=== PATIENT | female | born 1930 | race Caucasian/White ===

== ENCOUNTER 2016-07-04 19:49 | Emergency (ER) | payer OTHER ==
[2016-07-04 20:00] VITALS: BP 158/80; PULSE 89; TEMP 97.8; BMI 23.9
--- NOTE | 2016-07-04 20:05 | PDOC ---
History of Present Illness - General Chief Complaint: Bone Injury Stated Complaint: SLIP AND FALL RIGHT HAND Time Seen by Provider: 07/04/16 20:04 History Source: Patient Exam Limitations: No Limitations - History of Present Illness Initial Comments: 07/04/16 20:48 Patient was standing on couch trying to close the blinds when stumbled falling sideways landing on right wrist and striking head with glasses on. No drainage from nose or ears, no mental status changes, Denies LOC, fall was not witnessed but son whom she called states her behavior and her neuro status has not changed. Patient takes Plavix and is diabetic. Has significant pain and deformity to right wrist and some bruising to right brow and nasal bridge Occurred: reports: just prior to arrival Severity: reports: moderate, severe Pain Location: reports: face, head, upper extremity Method of Injury: Yes: fall Modifying Factors: improves with: None Loss of Consciousness: no loss of consciousness Associated Symptoms (Fall): denies symptoms Past History - Travel Traveled outside of the country in the last 30 days: No Close contact w/someone who was outside of country & ill: No - Past Medical History Allergies/Adverse Reactions: Allergies Allergy/AdvReac Type Severity Reaction Status Date / Time No Known Allergies Allergy Verified 07/04/16 19:52 Home Medications: Ambulatory Orders Glimepiride 4 mg PO BID 06/30/14 Metformin HCl [Glucophage -] 500 mg PO TID 06/30/14 Albuterol Sulfate Inhaler - [Ventolin HFA Inhaler -] 1 inh PO QID PRN 07/30/15 Aspirin Coated [Ecotrin -] 81 mg PO DAILY 07/30/15 Hydrochlorothiazide [Hctz -] 12.5 mg PO BID 07/30/15 Lisinopril 5 mg PO BID 07/30/15 Meloxicam [Mobic] 15 mg PO DAILY PRN 07/30/15 Piroxicam 20 mg PO DAILY 07/30/15 Simvastatin 10 mg PO HS 07/30/15 Acetaminophen [Tylenol .Regular Strength -] 650 mg PO Q6H PRN #0 tablet Albuterol 0.083% Nebulizer Nan [Ventolin 0.083% Nebulizer Soln -] 1 amp NEB Q4HPO amp 05/25/16 Budesonide/Formeterol Fumarate [SYMBICORT 160/4.5mcg -] 2 puff IH BID #1 inhaler 05/25/16 Montelukast Na [Singulair -] 10 mg PO HS tablet 05/25/16 Acetaminophen W/ Codeine #3 [Tylenol # 3] 1 combo PO Q4H PRN #14 tablet MDD 4 Anemia: No Asthma: Yes (DX 2009) Cancer: Yes (RIGHT BREAST CA- 2010, with masectomy) Cardiac Disorders: No CVA: No COPD: No CHF: No Dementia: No Diabetes: Yes (DX AT AGE 50) GI Disorders: No Disorders: No HTN: Yes (DX 2005) Hypercholesterolemia: Yes (DX 2005) Liver Disease: No Seizures: No Thyroid Disease: No - Surgical History Abdominal Surgery: Yes Appendectomy: Yes (REMOVED TEEN) Cardiac Surgery: No Cholecystectomy: Yes (OPEN-) Lung Surgery: No Neurologic Surgery: No Orthopedic Surgery: No - Psycho/Social/Smoking Cessation Hx Anxiety: No Suicidal Ideation: No Smoking Status: No Smoking History: Never smoked Have you smoked in the past 12 months: No Number of Cigarettes Smoked Daily: 0 Cigars Per Day: 0 Hx Alcohol Use: No Drug/Substance Use Hx: No Substance Use Type: None Hx Substance Use Treatment: No Review of Systems - Review of Systems Able to Perform ROS?: Yes Is the patient limited Greek proficient: Yes Constitutional: Yes: Symptoms Reported, See HPI, Malaise HEENTM: Yes: Symptoms Reported, Other (right wrist right brow and nasal ecchymoses and swelling). No: Nose Congestion (nasal pain and bruising) Respiratory: No: Symptoms reported Musculoskeletal: Yes: Symptoms Reported, See HPI, Joint Pain, Joint Swelling Integumentary: Yes: Symptoms Reported, Bruising Neurological: Yes: See HPI. No: Symptoms reported, Headache All Other Systems: Reviewed and Negative *Physical Exam - Vital Signs Last Vital Signs Temp Pulse Resp BP Pulse Ox 97.8 F 89 22 158/80 97 07/04/16 19:59 07/04/16 19:59 07/04/16 19:59 07/04/16 19:59 07/04/16 19:59 - Physical Exam General Appearance: Yes: Nourished, Appropriately Dressed HEENT: positive: MYKE, TMs Normal (no hemotympanum, no drainage from nose or ears, no evidence of skull fracture), Pharynx Normal (no drainage in posterior pharynx no bleeding noted), Other (soft tissue swelling and ecchymoses noted to the bridge of nose at eyeglasses padding with also small contusion to right brow , no crepitus or step-offs, negative EOM, no evidence of fracture.). negative: Rhinorrhea (no septal hematoma, no bleeding in either nostril) Neck: positive: Supple. negative: Tender, Tender midline (no vertebral spine tenderness, has full range of motion to neck) Respiratory/Chest: positive: Lungs Clear, Normal Breath Sounds Gastrointestinal/Abdominal: positive: Soft. negative: Tender Musculoskeletal: negative: Normal Inspection Extremity: positive: Normal Capillary Refill. 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 CT of head negative for bleed, multiple contusions status post fall. We'll discharge with follow-up with orthopedist, son will stay with mother tonight to evaluate for any changes in neurologic status or any other injury. *DC/Admit/Observation/Transfer Diagnosis at time of Disposition: Fracture of distal radius and ulna Qualifiers: Encounter type: initial encounter Fracture type: closed Laterality: right Qualified Code(s): S52.501A - Unspecified fracture of the lower end of right radius, initial encounter for closed fracture; S52.601A - Unspecified fracture of lower end of right ulna, initial encounter for closed fracture Superficial injury head Qualifiers: Encounter type: initial encounter Qualified Code(s): S00.90XA - Unspecified superficial injury of unspecified part of head, initial encounter - Discharge Dispostion Disposition: HOME Condition at time of disposition: Stable Admit: No - Referrals Referrals: Meng Cuevas MD [Staff Physician] - - Patient Instructions Printed Discharge Instructions: DI for Wrist Fracture Additional Instructions: Rest, avoid strenuous activity or exercise for the next 24-48 hours May use ice on contusions as needed. May use Tylenol or Motrin for pain relief May use Tylenol with codeine 1 tablet for worsened B her pain. Understanding may make dizzy and sleepy. Ensure bowels are working well if start to use codeine as may constipate. Watch and seek evaluation for changes in behavior including crankiness, inconsolability, quietness/ sleepiness that is inappropriate, tiredness that is inappropriate, watch for worsening and changes of behavior. Seek immediate evaluation/return to emergency department for vomiting, mental status changes, pain that's out of proportion , bloody drainage from ears or nose. Followup with private physician as needed in one to 2 days for reevaluation Rest, ice to area on and off for 15 minutes 4-6 times a day Avoid heavy lifting or exercise until pain and swelling is resolved or until further directed Keep area highly elevated to reduce swelling Use splints/Zana wrap as directed Followup with orthopedist in one to 2 days if not improving, if significantly improved may wait one week for followup with orthopedist May use ibuprofen 2-200 mg tablets every 6 hours as needed for pain
[2016-07-04] MEDS ORDERED: ACETAMINOPHEN 325 MG TABLET (FP) ONE (20:44)
[2016-07-04] MEDS ORDERED: OXYCODONE/APAP 5/325MG COMBO TABLET ONE (20:44)
[2016-07-04] MEDS ORDERED: OXYCODONE/APAP 5/325MG COMBO TABLET PO ONE (20:52)
[2016-07-04] MEDS ORDERED: ACETAMINOPHEN 500 MG TABLET (FP) PO ONE (20:52)
== END 2016-07-04 21:48 | disposition home or self-care (01) ==
LOC: JERFT 19:49
DX: S52.501A Unspecified fracture of the lower end of right radius, initial encounter for closed fracture (principal); S52.601A Unspecified fracture of lower end of right ulna, initial encounter for closed fracture; S00.33XA Contusion of nose, initial encounter; S00.11XA Contusion of right eyelid and periocular area, initial encounter; W08.XXXA Fall from other furniture, initial encounter; Y93.89 Activity, other specified; Y92.038 Other place in apartment as the place of occurrence of the external cause; I10 Essential (primary) hypertension; E11.9 Type 2 diabetes mellitus without complications; Z79.84 Long term (current) use of oral hypoglycemic drugs; E78.00 Pure hypercholesterolemia, unspecified; J45.909 Unspecified asthma, uncomplicated; Z85.3 Personal history of malignant neoplasm of breast
CPT/HCPCS: 70450-TC; 73110-TC-RT; 99281-25